=== PATIENT | male | born 1940 | race Caucasian/White ===

== ENCOUNTER → 2023-05-11 08:40 | Outpatient (REF) | payer OTHER, SELFPAY | LOC: DHCBC MAIN 08:40 | PROVIDERS: ATTENDING PHYSICIAN Internal Medicine Cardiovascular Disease; FAMILY PHYSICIAN Family Medicine | DX: I77.810 Thoracic aortic ectasia (principal); I10 Essential (primary) hypertension | CPT/HCPCS: 93306 ==

== ENCOUNTER 2023-06-26 01:12 | Emergency (ER) | payer OTHER, SELFPAY ==
[2023-06-26 01:14] VITALS: BP 150/83
[2023-06-26 01:19] VITALS: BP 150/83
--- NOTE | 2023-06-26 01:26 | ED.GENMED ---
History of Present Illness
General
Chief Complaint: Urinary Symptoms
Source: patient
Exam Limitations: none
Time Seen by Provider: 06/26/23 01:15
Travel History
Have you had any contact with someone who has COVID-19?: No
Do you have any symptoms of coronavirus? Fever > 100 degrees, chills, cough, shortness of breath, sore throat, loss of taste or smell, muscle aches, or headache?: No
History of Present Illness
History of Present Illness:
This is a 82 year old male that comes in with c/o left flank pain. States that he started about 7-7:30 with this left flank pain and he was nauseated. States that he was also sweating. States that he did not vomit. States that he still has the pain
but it is not as bed. Denies any fever, chills, chest pain, SOB, diarrhea, headache, dizziness, urinary burning.
Past History
Past History
ED Past Medical History: Cancer (Prostate cancer), HTN and Other (Short-term memory loss, Renal calculus, )
ED Past Surgical History: Orthopedic (Cyst removed form left shoulder, ), Urological (Left varicocele repair, Prostatectomy) and Other (Cataract surgery, Left hernia repait, )
Social History
Tobacco: Former smoker
Alcohol: Occasional
Personal:
Living: with family
Employment: Retired
Family History
Family History: Other
Review of Systems
Review of Systems
All Other Systems: ROS reviewed and negative except as documented in HPI and ROS
Constitutional: Reports no symptoms; Denies fever or chills
EENT: Reports no symptoms
Respiratory: Reports no symptoms; Denies cough or trouble breathing
Cardiac: Reports no symptoms; Denies chest pain
ABD/GI: Reports abdominal pain (Left sided) and nausea; Denies vomiting or diarrhea
: Reports flank pain (Left )
Musculoskeletal: Reports no symptoms
Skin: Reports no symptoms
Neurological: Reports no symptoms; Denies dizzy or headache
Psychiatric: Reports no symptoms
Phy Exam
General Physical Exam
General Presentation: mild distress
General age: appears stated age
General Skin: warm and dry
General Habitus: elderly
General Mental: alert
General Hydration: appears well hydrated
ENT Exam
ENT Exam: TM's normal, pharynx normal and neck supple
Eye Exam
Eye Exam: EOMI
Cardiovascular Exam
Cardiovascular Exam: regular rate/rhythm, no edema, no murmur and normal peripheral pulses
Pulmonary Exam
Pulmonary Exam: lungs clear, no respiratory distress, no rales, chest non tender, no crackles, no rhonchi, no wheezing and no cough
Gastrointestinal Exam
Gastrointestinal Exam: normal bowel sounds, non tender, soft, no organomegaly, no pulsatile mass, non distended and no cva tenderness
Musculoskeletal Exam
Musculoskeletal Exam: full ROM and no edema
Skin Exam
Skin Exam: normal color, warm/dry, no rash and no petechia
Psychiatric Exam
Psychiatric Exam: normal mood/affect
Course
Orders/Labs/Results
Orders:
Orders
06/26/23 01:25
CT Abd/pel Without Iv Or Oral Urgent
Comment:
Reason For Exam: Left flank pain
0.9% Sodium Chloride 500 ml [Nss] 500 ml IV BOLUS
06/26/23 01:33
Ketorolac [Toradol] 30 mg IV NOW STA
Ondansetron Injectable [Zofran] 4 mg IV NOW STA
06/26/23 01:34
Complete Blood Count/With Diff Urgent
Comprehensive Metabolic Panel Urgent
Urinalysis Reflex To Culture Urgent
Date Specimen was Collected: 06/26/23
Time Specimen was Collected: 01:32
Urine Microscopic Reflex Cult Urgent
Abnormal Lab Results
06/26/23
01:34
RBC 3.84 L 10^6/uL
(4.70-6.10)
Hgb 12.2 L g/dL
(13.0-18.0)
Hct 36.4 L %
(39.0-52.0)
MCV 94.8 H fL
(80.0-94.0)
MCH 31.8 H pg
(27.0-31.0)
RDW 15.5 H %
(11.5-14.5)
Absolute Monos (auto) 0.7 H 10^3/uL
(0.1-0.6)
Lymphocytes % 19.2 L %
(20.5-51.1)
BUN 26 H mg/dl
(9-20)
Glucose 117 H mg/dl
(70-99)
Leukocyte Esterase Rfl Trace A
(Negative)
06/26/23 01:34
06/26/23 01:34
H/H slghtly low, Anemia, Dehydration. Glucose nonfasting. urine negative for infection.
Vital Signs
Initial and Last Documented VS:
Initial Vital Signs
Temp Pulse Resp BP Pulse Ox
97.6 F 81 16 150/83 98
06/26/23 01:14 06/26/23 01:14 06/26/23 01:14 06/26/23 01:14 06/26/23 01:14
Last Documented Vital Signs
Temp Pulse Resp BP Pulse Ox
97.6 F 81 16 150/83 98
06/26/23 01:14 06/26/23 01:14 06/26/23 01:14 06/26/23 01:14 06/26/23 01:14
MDM/Problems Addressed
Differential Diagnosis Includes:
Renal calculus,
MDM/Problems Addressed:
This is a 82 year old male that comes in with c/o left flank pain. States that this started at 7-7:30pm and he was nauseated and started to sweat. State that he feels some better right now but he still has pain.
Will check labs and get CT. IV fluids and medidcate for pain.
Back into see patient. Explained that he has a Kidney stone that is almost to the bladder. Encouraged patient to increase his water intake to 8-8oz glasses daily. Will sent three prescription to patient pharmacy. The first is Flomax to help relax
the smooth muscle. The second is Zofran to help with any nausea/vomiting and the last is Toradol to help with pain. Patient to strain his urine. Follow up with the family doctor as there is something noted on the CT in the left base of the lung.
Patient doesn't have a fever and is not coughing so do not feel that this is infection. Explained that he may need a CT o his chest. Patient to return with any concerns.
Chronic conditions affecting care:
History of Renal calculus,
Acute Exacerbation and/or Progression of Chronic Illness:
Renal calculus
*Radiology
Radiology exam reviewed: radiology read reviewed (CT abd/pelvis- Night hawk- 2-3mm stone in the left ureterovesicular junction. Mild hydronephrosis, hydroureter and perinephric stranding. Please clinically correlate for signs and symptoms of
infection. Other nonobstructing stone in the right kidney. Masslike 3.9X 2.4cm opacification in the ), all reviewed NAD by ED Provider (CT cont- posterior is lert left lower lobe with small pleural effusion, new compared to prior study. Although
may reflect round atelectasis, infection, however neoplastic mass or pulmonary infarct difficulty to exclude. Indeterminant low-density lesions within the kidneys, may represent small cyst. ) and other (CT cont- Moderate stool in the colon but no
evidence for obstruction. Diverticulosis without evidence of diverticulitis. )
*Pulse Oximetry
Patient hypoxic: no
*EKG
Interpreted by ED Provider?: NA
Rate: EKG- N/A
*Critical Care Note
Total Time (30-74mins, 75-104mins- exclusive of procedures): Not Applicable
ED Attending Note
-
Portions of this chart may have been created with voice recognition software.� Occasional wrong word or��sound alike� substitutions may have occurred due to the inherent limitations of voice recognition software.
Discharge Plan
Departure
Patient Disposition: Home (Routine Discharge)
Date of Disposition: 06/26/23
Time of Disposition: 02:52
Patient with high blood pressure during this ER visit?: Yes
Condition: Good
Covid-19: Not Applicable
Discharge Problem:
Renal calcululs
Instructions: Renal Colic (DC), How to Strain Your Urine, BLOOD PRESSURE
Prescriptions:
New
tamsulosin [Flomax] 0.4 mg capsule
0.4 mg PO HS Qty: 7 0RF
ketorolac 10 mg tablet
10 mg PO Q8H PRN (Reason: Pain) 5 Days Qty: 15 0RF
ondansetron 4 mg tablet,disintegrating
4 mg PO Q8H PRN (Reason: nausea and vomiting) Qty: 7 0RF
No Action
nifedipine 90 mg Tablet Extended Release 24hr
90 mg PO DAILY
metoprolol succinate 25 mg Tablet Extended Release 24 Hr
25 mg PO DAILY
calcium carbonate-vitamin D3 [Oyster Shell Calcium-Vit D3] 500 mg-5 mcg (200 unit) Tablet
1 tab PO DAILY Qty: 30 1RF
guaifenesin [Siltussin SA] 100 mg/5 mL Liquid
200 mg PO Q4HPRN PRN (Reason: cough) Qty: 500 1RF
ascorbic acid (vitamin C) [Vitamin C] 500 mg Tablet
500 mg PO BID Qty: 14 0RF
cholecalciferol (vitamin D3) 50 mcg (2,000 unit) Tablet
2,000 unit PO DAILY Qty: 20 0RF
zinc sulfate 50 mg zinc (220 mg) Capsule
220 mg PO DAILY Qty: 3 0RF
Referrals:
Baltazar Aaltorre MD [Active] - Follow up in 5-7 days
UNKNOWN - PT NOT,INTERVIEWE [Unknown Provider] -
Activity Restrictions/Additional Instructions:
As discussed, you have a left renal calculus that is almost to the bladder. Please increase your water intake to 8-8oz glasses daily. You have had Three prescriptions sent to your Pharmacy. The first is Flomax that will help relax the smooth muscle
so you can pass the stone. The second is Zofran to help with any nausea and vomiting and the last is Toradol that will help with pain. Please strain your urine. Follow up with the Urologist in the next 5-7 days. You will also need to see the Family
doctor as there is an area on the left lower lobe of the lung that needs further evaluation. IF YOU HAVE ANY FEVER, COUGH, SOB, OR YOU HAVE ANY OTHER CONCERNS PLEASE RETURN TO THE EMERGENCY ROOM.
Interventions
Interventions:
*Risk Screen - Suicide Last Done: 06/26/23 01:14
*General Assessment Last Done: 06/26/23 01:14
*Neglect/Abuse Screening Last Done: 06/26/23 01:14
*ED COVID-19 Vaccine History Last Done: 06/26/23 02:10
ED-Male Genitourinary Assessment Last Done: 06/26/23 02:10
[2023-06-26] MEDS: NSS 500 IV (01:33)
[2023-06-26 01:41] LABS: % Basophils 0.4 % (0-2); % Eosinophils 3.3 % (0-6); % Immature Granulocytes 0.2 % (0-0.5); % Lymphocytes 19.2 % (20.5-51.1); % Monocytes 8.4 % (1.7-9.3); % Neutrophils 68.5 % (42.2-75.2); Absolute Eosinophils 0.3 10^3/uL (0-0.7); Absolute Lymphocytes 1.6 10^3/uL (1.2-3.4); Absolute Monocytes 0.7 10^3/uL (0.1-0.6); Absolute Neutrophils 5.6 10^3/uL (1.4-6.5); Hematocrit 36.4 % (39.0-52.0); Hemoglobin 12.2 g/dL (13.0-18.0); Mean Corp Hgb Conc. 33.5 g/dL (33.0-37.0); Mean Corpuscular Hgb 31.8 pg (27.0-31.0); Mean Corpuscular Volume 94.8 fL (80.0-94.0); Mean Platelet Volume 8.9 fL (7.4-10.4); Nucleated Red Blood Cells % 0 % (-); Platelet Count 295 10^3/uL (130-400); Red Blood Cell Count 3.84 10^6/uL (4.70-6.10); Red Cell Dist. Width 15.5 % (11.5-14.5); White Blood Cell Count 8.1 10^3/uL (4.8-10.8)
[2023-06-26 01:43] LABS: Urine Albumin Negative (Neg - Trace); Urine Bilirubin Negative (Negative); Urine Character Clear (Clear); Urine Color Yellow; Urine Glucose Negative (Negative); Urine Ketone Negative (Negative); Urine Leukocyte Trace (Negative); Urine Nitrite Negative (Negative); Urine Occult Blood Negative (Negative); Urine Urobilinogen Negative (Neg - 1+)
[2023-06-26 01:53] LABS: Urine Calcium Oxalate Crystals Seen; Urine Squamous Cell 0-2 /LPF (Few); Urine White Cell 0-2 /HPF (0-5)
[2023-06-26 01:54] LABS: Urine Red Blood Cell 0-2 /HPF (0-2)
[2023-06-26 01:58] LABS: ALT (SGPT) 17 U/L (0-50); AST (SGOT) 26 U/L (17-59); Albumin 4.1 g/dl (3.5-5.0); Alkaline Phosphatase 99 U/L (38-126); Blood Urea Nitrogen 26 mg/dl (9-20); Calcium 9.2 mg/dl (8.4-10.2); Carbon Dioxide 27 mmol/L (22-30); Chloride 107 mmol/L (98-107); Glucose 117 mg/dl (70-99); Potassium 4.1 mmol/L (3.5-5.1); Sodium 140 mmol/L (135-145); Total Bilirubin 0.4 mg/dl (0.2-1.3); eGFR > 60.00
[2023-06-26] MEDS: ZOFRAN 4 MG IV (02:25)
[2023-06-26] MEDS: TORADOL 30 MG IV (02:25)
[2023-06-26 02:28] VITALS: BP 149/90
[2023-06-26] MEDS: FLOMAX 0.400000000000000022 MG PO (02:56)
== END 2023-06-26 03:47 | disposition home or self-care (01) ==
LOC: EMR 01:12
PROVIDERS: Clinical Nurse Specialist Family Health; EMERGENCY PHYSICIAN Student in an Organized Health Care Education/Training Program; FAMILY PHYSICIAN Family Medicine
DX: N13.2 Hydronephrosis with renal and ureteral calculous obstruction (principal); N13.4 Hydroureter; R11.0 Nausea; I10 Essential (primary) hypertension; Z85.46 Personal history of malignant neoplasm of prostate; Z87.442 Personal history of urinary calculi; Z87.891 Personal history of nicotine dependence; Z90.79 Acquired absence of other genital organ(s); Z88.8 Allergy status to other drugs, medicaments and biological substances
CPT/HCPCS: 99284; 96374; 96375; 74176; 80053; 81003; 81015; 85025

== ENCOUNTER → 2023-07-05 13:51 | Outpatient (REF) | payer OTHER, SELFPAY | LOC: HWRAD 13:51 | PROVIDERS: ATTENDING PHYSICIAN Family Medicine | DX: R93.89 Abnormal findings on diagnostic imaging of other specified body structures (principal) | CPT/HCPCS: 71260; Q9967 ==

== ENCOUNTER → 2024-09-25 11:05 | Outpatient (REF) | payer OTHER, SELFPAY | LOC: RAD 11:05 | PROVIDERS: ATTENDING PHYSICIAN Family Medicine | DX: M54.30 Sciatica, unspecified side (principal) | CPT/HCPCS: 72110 ==